=== PATIENT | male | born 1990 | race Caucasian/White ===

== ENCOUNTER → 2020-07-27 | Outpatient (CLI) | payer OTHER ==
[~2020-07-27] MED LIST: CYCLOBENZAPRINE5 MG PO; IBUPROFEN800 MG PO
== END ==
LOC: KOH-I 09:59
DX: S69.91XA Unspecified injury of right wrist, hand and finger(s), initial encounter (principal); S89.92XA Unspecified injury of left lower leg, initial encounter; W19.XXXA Unspecified fall, initial encounter
CPT/HCPCS: 73110; 73130; 73562